=== PATIENT | female | born 1965 | race Caucasian/White ===

== ENCOUNTER 2018-12-30 09:00 | Outpatient (CLI) | payer OTHER ==
[2015-07-27 12:30] VITALS: BMI 24.1
[~2018-12-30 09:00] MED LIST: BAYER CHEWABLE81 MG PO; FLAGYL 500500 MG/100 PO; LEVAQUIN 5500 MG/100 PO; LISINOPRIL10 MG PO
== END 2018-12-30 10:00 | disposition home or self-care (01) ==
LOC: D.MAMMO 09:00
PROVIDERS: ATTEND Family Medicine
DX: Z12.31 Encounter for screening mammogram for malignant neoplasm of breast (principal)

== ENCOUNTER → 2019-02-06 08:00 | Outpatient (CLI) | payer OTHER ==
[2015-07-27 12:30] VITALS: BMI 24.1
== END | disposition home or self-care (01) ==
LOC: D.MAMMO 08:00
PROVIDERS: ATTEND Family Medicine
DX: R92.8 Other abnormal and inconclusive findings on diagnostic imaging of breast (principal)

== ENCOUNTER 2019-02-23 09:00 | Outpatient (CLI) | payer OTHER ==
[2015-07-27 12:30] VITALS: BMI 24.1
== END 2019-02-23 10:00 | disposition home or self-care (01) ==
LOC: D.MAMMO 09:00
PROVIDERS: ATTEND Family Medicine
DX: R92.8 Other abnormal and inconclusive findings on diagnostic imaging of breast (principal)

== ENCOUNTER → 2021-01-09 14:15 | Outpatient (CLI) | payer OTHER ==
[2015-07-27 12:30] VITALS: BMI 24.1
== END | disposition home or self-care (01) ==
LOC: D.MAMMO 01-08 13:45
PROVIDERS: ATTEND Family Medicine
DX: Z12.31 Encounter for screening mammogram for malignant neoplasm of breast (principal)